=== PATIENT | male | born 1970 | race Caucasian/White ===

== ENCOUNTER 2018-11-08 22:44 | Emergency (ER) | payer BC, MEDICAID ==
[2018-11-08] MEDS ORDERED: Ketorolac 60 MG/2 ML SDV IM ONE (23:31)
[2018-11-08] MEDS ORDERED: HYDROmorphone 2 MG/ML SDV IM ONE (23:31)
--- NOTE | 2018-11-08 23:43 | EDM.PDOC ---
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, straightened up and back began to hurt taking ibuprofen 200 mg 4 tabs 2-3x/d, last took at 4p went to chiropractor this PM, had inc'd pain as he was leaving, felt something pop tonight as he bent over has numb on his R anterior thigh but not elsewhere, burning in area of greater trochanter on R not used meds beside ibuprofen not seen ortho here with sister says he has sacrilization of one vertebrae and that the disc above is protruding not had an MRI has been in bed for much of past 24h cannot get comfortable wearing a back brace back Pain Score (Numeric/FACES): 9 - Related Data Allergies Allergy/AdvReac Type Severity Reaction Status Date / Time No Known Allergies Allergy Verified 11/08/18 23:46 Home Meds: Home Meds rOPINIRole HCl [Ropinirole HCl] 2 mg PO BEDTIME 11/15/15 [History] Gabapentin [Neurontin] 100 mg PO TID #30 capsule 11/09/18 [Rx] oxyCODONE 5 mg PO Q8H PRN #10 tab 11/09/18 [Rx] Past Medical History Neurological History: Reports: Other (See Below) Other Neuro History: RESTLESS LEG SYNDROME ED ROS GENERAL - Review of Systems Review Of Systems: See Below Constitutional: Reports: No Symptoms HEENT: Reports: No Symptoms Respiratory: Reports: No Symptoms Cardiovascular: Reports: No Symptoms Endocrine: Reports: No Symptoms GI/Abdominal: Reports: No Symptoms : Reports: No Symptoms Musculoskeletal: Reports: Back Pain Skin: Reports: No Symptoms Neurological: Reports: Numbness Psychiatric: Reports: No Symptoms Hematologic/Lymphatic: Reports: No Symptoms Immunologic: Reports: No Symptoms ED EXAM,LOWER BACK PAIN/INJURY - Physical Exam Exam: See Below Exam Limited By: No Limitations General Appearance: Alert, WD/WN, Moderate Distress, Other (lying awkwarding on bed supine, favoring R lower back) Respiratory/Chest: No Respiratory Distress Cardiovascular: Regular Rate, Rhythm Back Exam: Other (SLR to 45 degrees on R is positive, SLR to 60 degrees on L is negative, dec'd light touch at R anterior thigh in area of L5, l-spine with no point tender, no spasm) Extremities: Normal Inspection, Non-Tender, No Pedal Edema Neurological: Alert, Normal Mood/Affect Psychiatric: Normal Affect, Normal Mood Skin Exam: Warm, Dry, Intact, Normal Color, No Rash Lymphatic: No Adenopathy Course - Vital Signs Last Recorded V/S: Last Vital Signs Temp 37.2 C 11/08/18 22:44 Pulse 80 11/08/18 22:44 Resp 20 11/08/18 22:44 BP 152/110 H 11/08/18 22:44 Pulse Ox 99 11/08/18 22:44 - Orders/Labs/Meds Orders: Active Orders 24 hr Category Date Time Status Lumbar Spine 2 or 3V [CR] Stat Exams 11/08/18 23:33 Taken Gabapentin [Neurontin] Med 11/09/18 00:45 Once 100 mg PO ONETIME ONE Meds: Medications Discontinued Medications Generic Name Dose Route Start Last Admin Trade Name Freq PRN Reason Stop Dose Admin Hydromorphone HCl 1 mg 11/08/18 23:31 11/08/18 23:39 Dilaudid IM 11/08/18 23:32 1 mg ONETIME ONE Administration Ketorolac Tromethamine 60 mg 11/08/18 23:31 11/08/18 23:38 Toradol IM 11/08/18 23:32 60 mg ONETIME ONE Administration - Re-Assessments/Exams Free Text/Narrative Re-Assessment/Exam: 11/09/18 00:50 XR l-spine shows minimal lumbarization of L5, some DJD noted with spurring noted with loss of disc space at T12-S1 feeling better after Toradol and Dilaudid here use of meds discussed at length XR's reviewed with Sister Departure - Departure Time of Disposition: 00:45 Disposition: Home, Self-Care 01 Condition: Fair Clinical Impression: Lumbar radiculopathy - Discharge Information *PRESCRIPTION DRUG MONITORING PROGRAM REVIEWED*: Not Applicable *COPY OF PRESCRIPTION DRUG MONITORING REPORT IN PATIENT KENDY: Not Applicable Prescriptions: Gabapentin [Neurontin] 100 mg PO TID #30 capsule oxyCODONE 5 mg PO Q8H PRN #10 tab PRN Reason: Pain Instructions: Lumbosacral Radiculopathy Referrals: Forest Hester MD [Primary Care Provider] - Additional Instructions: For pain, take ibuprofen 200 mg 4 tabs 3 times a day for 1 week, longer if needed. For pain, take acetaminophen 500 mg 2 tabs 3 times a day for 1 week, longer if needed. For pain, take gabapentin 100 mg 1 tab 3 times a day for 1 week, longer if needed. You may take all of the above 3 meds together. For pain, as needed, may also take oxycodone 5 mg 1 tab every 8 hours. No alcohol or driving within 8 hours of taking. Sleep on a firm mattress. Use back brace to help maintain back alignment. See Dr Cohen in 1 week. See orthopedic surgeon in 1-2 week. Return to ED if you are feeling worse. - My Orders Last 24 Hours: My Active Orders 11/08/18 23:33 Lumbar Spine 2 or 3V [CR] Stat 11/09/18 00:45 Gabapentin [Neurontin] 100 mg PO ONETIME ONE - Assessment/Plan Last 24 Hours: My Active Orders 11/08/18 23:33 Lumbar Spine 2 or 3V [CR] Stat 11/09/18 00:45 Gabapentin [Neurontin] 100 mg PO ONETIME ONE
[2018-11-09] MEDS ORDERED: Gabapentin 100 MG Cap PO ONE (00:45)
[2018-11-09 01:19] VITALS: BP 142/99
--- NOTE | 2018-11-09 11:17 | CR ---
INDICATION: Right radicular pain. LUMBOSACRAL SPINE: Three views of the lumbosacral spine revealed decreased disc space at L4-5 and also probably at L5-S1 suggesting disc disease at those levels. Mild hypertrophic degenerative changes are noted at the L3-4 level. T12-L1 moderate hypertrophic degenerative changes are noted anteriorly and laterally off the vertebral bodies at that level. Vertebral body heights were well maintained. Bone density appeared to be normal. Pedicles appear to be grossly intact. Sacroiliac joints show evidence of mild degenerative change. This appears to be more prominent on the right than left. IMPRESSION: 1. Degenerative disc disease suggested at L4-5, L5-S1 as well as at T12-L1. 2. Degenerative changes sacroiliac joints right greater than left. MTDD
== END 2018-11-09 01:03 | disposition home or self-care (01) ==
LOC: FB.ED 22:44
DX: M54.16 Radiculopathy, lumbar region (principal); Z79.899 Other long term (current) drug therapy
CPT/HCPCS: 72100; 96372; 99284; A9270; J1170; J1885

== ENCOUNTER 2019-05-15 14:21 | Emergency (ER) | payer MEDICAID ==
[2019-05-15] MEDS ORDERED: HYDROmorphone 2 MG/ML SDV IM ONE (15:03)
--- NOTE | 2019-05-15 15:06 | EDM.PDOC ---
ED HPI GENERAL MEDICAL PROBLEM - General Chief Complaint: Back Pain or Injury Stated Complaint: BACK PAIN Time Seen by Provider: 05/15/19 14:40 Source of Information: Reports: Patient, Old Records History Limitations: Reports: No Limitations - History of Present Illness INITIAL COMMENTS - FREE TEXT/NARRATIVE: Angelito comes into [facility] ED with exacerbation of low back pain associated with some pain and numbness in R thigh and limping on R leg. There are no sxs of foot drop, incontinence, or hx of recent fall. He has had issues with back pain for over 20 years, managed with [facility] care. He was seen in the ED on November 08 for similar sxs, x rays noting degenerative changes at multiple levels and SI joints. He has not obtained MRI diagnostic imaging or seen an orthopedist. He was seen in Clinic yesterday for treatment. back Pain Score (Numeric/FACES): 5 - Related Data Allergies Allergy/AdvReac Type Severity Reaction Status Date / Time No Known Allergies Allergy Verified 11/08/18 23:46 Home Meds: Home Meds rOPINIRole HCl [Ropinirole HCl] 2 mg PO BEDTIME 11/15/15 [History] Gabapentin [Neurontin] 100 mg PO TID #30 capsule 11/09/18 [Rx] oxyCODONE 5 mg PO Q8H PRN #10 tab 11/09/18 [Rx] Losartan Potassium 25 mg PO DAILY 05/15/19 [History] dexAMETHasone [Dexamethasone] 2 mg PO BID 05/15/19 [History] Past Medical History Cardiovascular History: Reports: Hypertension Musculoskeletal History: Reports: Arthritis, Back Pain, Chronic Neurological History: Reports: Other (See Below) Other Neuro History: RESTLESS LEG SYNDROME Social & Family History - Family History Family Medical History: Noncontributory - Tobacco Use Smoking Status *Q: Current Every Day Smoker Years of Tobacco use: 30 Packs/Tins Daily: 1 - Caffeine Use Caffeine Use: Reports: Coffee ED ROS GENERAL - Review of Systems Review Of Systems: ROS reveals no pertinent complaints other than HPI. ED EXAM,LOWER BACK PAIN/INJURY - Physical Exam Exam: See Below Exam Limited By: No Limitations General Appearance: Alert, WD/WN, Anxious, Moderate Distress, Obese Head: Normocephalic Neck: Normal Inspection, Supple, Non-Tender, Full Range of Motion Respiratory/Chest: Lungs Clear, Normal Breath Sounds, Chest Non-Tender Cardiovascular: Regular Rate, Rhythm, No Edema, No Murmur GI/Abdominal: Normal Bowel Sounds, Soft, Non-Tender, No Organomegaly, No Distention, No Mass (Male) Exam: Deferred Rectal (Males) Exam: Deferred Back Exam: Decreased Range of Motion, Vertebral Tenderness Extremities: Normal Inspection, Non-Tender, No Pedal Edema, Normal Capillary Refill Neurological: Alert, CN II-XII Intact, Normal Plantar Flexion, No Motor/Sensory Deficits, Oriented x 3 Psychiatric: Normal Affect, Anxious Skin Exam: Warm, Dry, Intact, Normal Color, No Rash Lymphatic: No Adenopathy Course - Vital Signs Text/Narrative:: Following assessment, I administered Dilaudid 2 mg IM for pain relief. He will be scheduled for an MRI of Lumbar spine for tomorrow, and see Dr Barnhart next week for consultation. Last Recorded V/S: Last Vital Signs Temp 36.4 C 05/15/19 14:21 Pulse 96 05/15/19 14:21 Resp 18 05/15/19 14:21 BP 176/100 H 05/15/19 14:21 Pulse Ox 95 05/15/19 14:21 - Orders/Labs/Meds Meds: Medications Discontinued Medications Generic Name Dose Route Start Last Admin Trade Name Freq PRN Reason Stop Dose Admin Hydromorphone HCl 2 mg 05/15/19 15:03 Dilaudid IM 05/15/19 15:04 ONETIME ONE Departure - Departure Time of Disposition: 15:13 Disposition: Home, Self-Care 01 Condition: Fair Clinical Impression: Lumbar radiculopathy - Discharge Information *PRESCRIPTION DRUG MONITORING PROGRAM REVIEWED*: Not Applicable *COPY OF PRESCRIPTION DRUG MONITORING REPORT IN PATIENT KENDY: Not Applicable Referrals: Forest Hester MD [Primary Care Provider] - Forms: ED Department Discharge - Problem List & Annotations (1) Lumbar radiculopathy SNOMED Code(s): 679071612 Code(s): M54.16 - RADICULOPATHY, LUMBAR REGION Status: Acute Current Visit: Yes Annotation/Comment:: Continue OP management and complete diagnostic imaging this week. - Problem List Review Problem List Initiated/Reviewed/Updated: Yes - Assessment/Plan Plan: Follow up with Orthopedist next week.
[2019-05-15 19:14] VITALS: BP 170/96; PULSE 90
== END 2019-05-15 15:52 | disposition home or self-care (01) ==
LOC: FB.ED 14:21
DX: M54.16 Radiculopathy, lumbar region (principal); I10 Essential (primary) hypertension; M19.90 Unspecified osteoarthritis, unspecified site; F17.210 Nicotine dependence, cigarettes, uncomplicated
CPT/HCPCS: 96374; 99283; J1170

== ENCOUNTER 2021-12-28 07:56 | Day surgery (SDC) | payer MEDICAID ==
[2021-12-28] MEDS ORDERED: Propofol 200 MG/20 ML SDV IV ONE (07:57)
[2021-12-28] MEDS ORDERED: Lidocaine 1% PF 2 ML SDV INJECT ONE (07:57)
[2021-12-28] MEDS ORDERED: Sodium Chloride 0.9% 10 ML Syringe FLUSH PRN (08:15)
[2021-12-28] MEDS: Lactated Ringers 1,000 ML IV SCH (08:56)
[2021-12-28 09:45] VITALS: BP 124/76
[2021-12-28 13:52] VITALS: PULSE 75
== END 2021-12-28 10:25 | disposition home or self-care (01) ==
LOC: FB.SDS 07:56
PROVIDERS: ATTEND Surgery
DX: D12.6 Benign neoplasm of colon, unspecified (principal); K57.31 Diverticulosis of large intestine without perforation or abscess with bleeding; E11.9 Type 2 diabetes mellitus without complications; E78.5 Hyperlipidemia, unspecified; I10 Essential (primary) hypertension; G47.33 Obstructive sleep apnea (adult) (pediatric); K21.9 Gastro-esophageal reflux disease without esophagitis; Z90.49 Acquired absence of other specified parts of digestive tract; Z98.890 Other specified postprocedural states; Z79.899 Other long term (current) drug therapy
CPT/HCPCS: 00811-QZ; 82947; 88305; J2704; J7120